=== PATIENT | male | born 1955 | race Caucasian/White ===

== ENCOUNTER 2022-09-10 14:00 | Outpatient (CLI) | payer MEDICARE, SELFPAY ==
--- NOTE | ~2022-09-10 | CT_ITS ---
EXAMINATION: CT abdomen pelvis w con INDICATION: Abdominal mass and pain TECHNIQUE: Computed tomographic images of the abdomen and pelvis were obtained after the administrati on of 100 cc of Omnipaque 350 intravenous contrast. The dose-length product (DLP) was 1509.52 mGy-cm. Automated exposure control and iterative reconstruction technique were employed. COMPARISON: None available FINDINGS: There are greater than 30 nodules and masses of the visualized lung bases. The largest tyrone ures 3.5 cm in the left lower lobe. There are multiple (greater than 20) masses scattered throughout all lobes of the liver. The largest measures approximately 6.9 x 5.2 cm in the left hepatic lobe. The re is a trace right pleural effusion. The spleen, pancreas, gallbladder, and adrenal glands are ninoska l. There is a small volume of ascites. Omental caking is noted. There is a questionable area of irreg ular wall thickening in the rectum. There is also questionable area of irregular wall thickening of t he colon near the hepatic flexure. There is an 8 mm cyst of the left kidney. The right kidney is unre markable. Colonic diverticulosis is present without evidence of diverticulitis. There is no free intr aperitoneal gas or evidence of bowel obstruction. There is severe lumbar spondylosis at L5-S1. IMPRESSION: 1. Multiple nodules and masses of the visualized lung bases, multiple liver masses, and omental cakin g, consistent with widespread metastatic disease. Areas of questionable irregular wall thickening in the rectum and hepatic flexure of the colon could reflect sites of primary disease. Recommend correla tion with colonoscopy history and biopsy of one of several available metastases. Reviewed, dictated and finalized at location F. IMPRESSION: 1. Multiple nodules and masses of the visualized lung bases, multiple liver mas ses, and omental caking, consistent with widespread metastatic disease. Areas o f questionable irregular wall thickening in the rectum and hepatic flexure of t he colon could reflect sites of primary disease. Recommend correlation with col onoscopy history and biopsy of one of several available metastases.
== END 2022-09-10 14:01 | disposition home or self-care (01) ==
LOC: ANHIMG 14:05
PROVIDERS: PCP Family Medicine; Visit Provider Family Medicine
DX: R10.9 Unspecified abdominal pain (principal); R91.8 Other nonspecific abnormal finding of lung field
CPT/HCPCS: 74177; Q9967

== ENCOUNTER 2022-09-13 01:39 | Day surgery (SDC) | payer MEDICARE, SELFPAY ==
[2022-09-08 14:04] VITALS: BMI 40.2
--- NOTE | 2022-09-11 10:09 | PM.HPGS ---
History of Present Illness History of Present Illness Consent: Risks, benefits, and alternatives have been discussed and questions answered. Patient agrees to proceed with procedure. Chief complaint: Melena Narrative: Flaquito Morgan is a 67 year old male With his referred for investigation of rectal bleeding. He has had blood in his stools on and off for the past year. Also he has been gaining weight although he feels he has a decreased appetite and is not eating as much. Review of Systems Review of Systems: All systems reviewed & are unremarkable except as noted in HPI and below PMFSH Past Medical History Medical History Bilateral tinnitus Cellulitis Hemorrhoids Infection of knee Surgical History Surgical History History of shoulder surgery Family History Family History Father Pancreatic cancer Sibling Pancreatic cancer Sibling Breast cancer Social History Social History Smoking packs per day: 1 Smoking cigarettes per day: 20.0 Years smoked: 20 Smoking pack-years: 20.00 Smoking status: Former smoker Tobacco type: cigarettes Second hand tobacco smoke exposure: No Smoking end date: 12/13/98 Alcohol intake: current Drinks per week: 7 Substance use: current Substance use type: does not use Other substance usage details: 3 to 4 times per year. Living arrangements: alone Gender identity (if verbalized by the patient): Male Sexual Orientation (if Verbalized by the Patient): Straight or Heterosexual Spiritual care concerns: No (Anyone could come and speak with patient if need be.) Agree to blood products: Yes Meds Home Medications and Allergies Home Medications Medication Instructions Recorded Confirmed Type No Home Medications 09/13/22 09/13/22 History Allergies Allergy/AdvReac Type Severity Reaction Status Date / Time No Known Allergies Allergy Mild Verified 09/13/22 10:03 Exam Const: General: alert Nutritional Appearance: obese Orientation/consciousness: patient oriented x3 Resp: Auscultation: clear to auscultation bilaterally Cardio: Rhythm: regular rhythm GI: GI Palp: Yes Soft to palpation and No Tenderness to palpation present (GI) Neuro: General: patient oriented x3 Assessment and Plan Assessment and plan (1) Hematochezia: Code(s): K92.1 - Melena Status: Acute Assessment and Plan: Colonoscopy with possible biopsy or polypectomy or cautery or injection of substances.
[2022-09-13 10:05] VITALS: BP 152/85; PULSE 78; RESP 20; TEMP 36.6; O2SAT 99; BMI 40.5
[2022-09-13] MEDS: LACTATED RINGERS 1,000 ML 150 ML IV CONT (10:09)
--- NOTE | 2022-09-13 10:23 | P.PNAN_ITS ---
Anes - Initial Pre Proc Eval Procedure: Operation Date: 09/13/22 11:00 Proposed Procedures p Colonoscopy - Wilian Birmingham MD Date/Time: 09/13/22 10:23 Surgeon: Wilian Birmingham MD Pre Op Diagnosis: Amaya Patient Data Age: 67 Gender: M Height: 1.78 m Weight: 128.1 kg Last Vital Signs Temp 36.6 C 09/13/22 10:05 Pulse 78 09/13/22 10:05 Resp 20 09/13/22 10:05 BP 152/85 H 09/13/22 10:05 Pulse Ox 99 09/13/22 10:05 O2 Del Method Room Air 09/13/22 10:05 Allergies Allergy/AdvReac Type Severity Reaction Status Date / Time No Known Allergies Allergy Mild Verified 09/13/22 10:03 Home Medications Medication Instructions Recorded Confirmed Type No Home Medications 09/13/22 09/13/22 History Patient hx anesthesia problems: none Family hx anesthesia problems: none Results Review: All pre-operative results and documents have been reviewed as part of the pre- operative evaluation. [facility] Past Medical History Medical History Bilateral tinnitus Cellulitis Hemorrhoids Infection of knee Surgical History Surgical History History of shoulder surgery Family History Family History Father Pancreatic cancer Sibling Pancreatic cancer Sibling Breast cancer Social History Social History Smoking packs per day: 1 Smoking cigarettes per day: 20.0 Years smoked: 20 Smoking pack-years: 20.00 Smoking status: Former smoker Tobacco type: cigarettes Second hand tobacco smoke exposure: No Smoking end date: 12/13/98 Alcohol intake: current Drinks per week: 7 Substance use: current Substance use type: does not use Other substance usage details: 3 to 4 times per year. Living arrangements: alone Gender identity (if verbalized by the patient): Male Sexual Orientation (if Verbalized by the Patient): Straight or Heterosexual Spiritual care concerns: No (Anyone could come and speak with patient if need be.) Agree to blood products: Yes Anes - Eval Final PreProcedure Day of Procedure 09/13/22 10:23 Patient weight: morbidly obese Heart: regular rate and rhythm Lungs: clear to auscultation Airway: Mallampati scale class II Neurological: alert and oriented Last oral intake: >/= 8 hours ASA classification: III Emergent: no Anesthetic plan: proceed Anesthesia type and monitoring: general GIVS and standard monitoring Results Review: All pre-operative results and documents have been reviewed as part of the pre- operative evaluation. Informed Consent: The patient's anesthetic plan and its attendant risks and benefits were discussed with the patient/family/POA. Questions were solicited and answers provided to the satisfaction of the patient/family/POA.
--- NOTE | 2022-09-13 10:48 | SUR.PREOP ---
pt had a cup of chicken broth this am at 0600. states he had read the prep instructions wrong and thought this was allowed. dr chavarria informed. no new orders.
[2022-09-13 10:58] VITALS: BP 119/40; PULSE 63; RESP 20; O2SAT 95
[2022-09-13 11:08] VITALS: BP 119/52; PULSE 77; RESP 15; O2SAT 96
[2022-09-13 11:18] VITALS: BP 120/63; PULSE 61; RESP 19; O2SAT 97
== END 2022-09-13 11:34 | disposition home or self-care (01) ==
PROVIDERS: PCP Family Medicine; Visit Provider Internal Medicine Gastroenterology
PROC: 0DJD8ZZ Inspection of Lower Intestinal Tract, Via Natural or Artificial Opening Endoscopic (ICD-10-PCS; CPT 45378; principal; 2022-09-13 11:00)
DX: K92.1 Melena (principal); D12.3 Benign neoplasm of transverse colon; K62.1 Rectal polyp; Z87.891 Personal history of nicotine dependence; E66.9 Obesity, unspecified; Z68.41 Body mass index [BMI] 40.0-44.9, adult
CPT/HCPCS: 45385; 45380; 88305; J2704; J7120